=== PATIENT | female | born 1950 | race Caucasian/White ===

== ENCOUNTER 2020-12-19 18:17 | Emergency (ER) | payer OTHER, SELFPAY ==
[2020-12-19] VITALS (8 sets, daily range): BP systolic 169–204; BP diastolic 70–109; PULSE 76–103; RESP 8–23; TEMP 36.7; O2SAT 98–100; BMI 36.8
--- NOTE | 2020-12-19 18:30 | DI.RAD.S_ITS ---
PROCEDURE: XR CHEST 1V INDICATIONS: chest pain TECHNIQUE: One view of the chest was acquired. COMPARISON: None. FINDINGS: Surgical changes and devices: None. Lungs and pleura: Lungs are clear. No pleural effusions or pneumothorax. Mediastinum: Mediastinal contours appear normal. Heart size is normal. Bones and chest wall: No suspicious bony lesions. Overlying soft tissues appear unremarkable. IMPRESSION: No acute cardiopulmonary disease. Dictated by: Kavin Pérez M.D. on 12/19/2020 at 18:58 Approved by: Kavin Pérez M.D. on 12/19/2020 at 18:59
--- NOTE | 2020-12-19 19:02 | ED.CHESTPAIN ---
HPI - Chest Pain General Chief Complaint: Chest Pain Stated Complaint: chest pain Time Seen by Provider: 12/19/20 18:29 Source: patient Mode of arrival: Ambulatory Limitations: no limitations History of Present Illness HPI narrative: Patient is a 70-year-old female with history of hypertension presenting today with hypertension and burning in her chest. She says that last evening she woke from her sleep and felt burning in her chest radiating through to her back at her bra line. It has been constant all day without being relieved by antacids medication. She denies any shortness of breath palpitations is. She denies any nausea or diaphoresis. She really is complaining only of epigastric pain. She states she is followed by Leni weems for primary care she was previously on lisinopril however she took her 1st dose of what I am assuming his amlodipine 5 mg today. She was continuing to feel burning in her epigastric area took her blood pressure was 198/100 at which point she came to the emergency department for evaluation. MD complaint: chest pain Duration: constant Onset: during rest Pain location: epigastric Quality: other (Burning) Pain radiation: back Relieving factors: nothing Exacerbating factors: nothing Related Data Allergies Allergy/AdvReac Type Severity Reaction Status Date / Time acetaminophen [From Percocet] Allergy Severe Vomiting Verified 12/19/20 18:29 oxycodone [From Percocet] Allergy Severe Vomiting Verified 12/19/20 18:29 latex Allergy Verified 12/19/20 18:29 nini Allergy Verified 12/19/20 18:29 Review of Systems Review of Systems Narrative: GENERAL: Denies chills, fatigue, malaise, fever, sweats, travel HEENT: Denies sinus pain, ear pain, sore throat, difficulty swallowing, neck pain RESPIRATORY: Denies dyspnea, cough, wheezing, hemoptysis, sputum. CARDIOVASCULAR: See HPI GASTROINTESTINAL: Denies nausea, vomiting, abdominal pain, diarrhea, constipation, melena. : Denies dysuria, frequency, incontinence, hematuria, urinary retention, flank pain. MUSCULOSKELETAL: Denies weakness, joint pain, or bony pain SKIN: No rash, no erythema, no pruritus NEUROLOGIC: Denies weakness, dizziness, headache, numbness, change in speech, confusion PSYCHIATRIC: No concerning psychosocial issues. 12 point review of systems is negative except for those stated above and HPI Patient History Medical History Hypertension Social History Smoking Status: Never smoker Smoking Status: Never smoker Substance Use Type: does not use Exam Initial Vital Signs Initial Vital Signs: Vital Signs Temperature 98.0 F 12/19/20 18:25 Pulse Rate 103 H 12/19/20 18:25 Respiratory Rate 18 12/19/20 18:25 Blood Pressure 202/92 H 12/19/20 18:25 Pulse Oximetry 99 12/19/20 18:25 GENERAL: 70-year-old overweight female and in no acute distress. HEENT: Head atraumatic,EOMI, pupils reactive, face symmetric, moist mucous membranes CARDIOVASCULAR: Regular rate and rhythm without murmurs, rubs or gallops. RESPIRATORY: Breath sounds equal bilaterally, no wheezes rales or rhonchi. ABDOMEN: Soft, if he gastric pain with mild right upper quadrant pain negative Paulino sign EXTREMITIES: Normal range of motion, no clubbing or edema. Neurovascularly intact NEUROLOGICAL: Alert and oriented x4.Normal gait and speech. SKIN: Warm, dry, no laceration, no petechiae, no rashes or lesions. Scores HEART Score Heart Score history: Slightly Suspicious Heart Score EKG: Normal Heart Score Age: > or = 65 years old Heart Score risk factors: 1-2 risk factors Heart Score troponin: < or = to normal limit Heart Score Total: 3 Course Orders Ordered: ED Orders 12/19/20 18:29 EKG-12 Lead Stat 12/19/20 18:30 XR chest 1V Stat 12/19/20 18:50 Complete Blood Count AUTO DIFF Stat Comprehensive Metabolic Panel Stat Lipase Stat Partial Thromboplastin Time Stat Prothrombin Time INR Stat Troponin & CK Cardiac Panel Stat 12/19/20 19:08 CT chest abd pel wwo con Stat US abdomen limited Stat Discontinued Medications Aspirin (Aspirin 81 Mg Chew Tab) 324 mg PO NOW ONE Stop: 12/19/20 18:31 Last Admin: 12/19/20 19:45 Dose: 324 mg Documented by: RALPH Pantoprazole Sodium (Pantoprazole 40 Mg Vial) 40 mg IV NOW ONE Stop: 12/19/20 19:31 Last Admin: 12/19/20 19:45 Dose: 40 mg Documented by: RALPH Vital Signs Vital signs: Vital Signs - 8 hr 12/19/20 19:14 12/19/20 19:45 12/19/20 19:46 Pulse Rate 79 101 H 101 H Respiratory Rate 8 L 18 Blood Pressure 204/95 H Pulse Oximetry 100 98 12/19/20 20:00 12/19/20 20:30 12/19/20 20:31 Pulse Rate 99 H 79 76 Respiratory Rate 23 10 L 10 L Blood Pressure 192/92 H 175/109 H Pulse Oximetry 99 99 98 12/19/20 21:00 Pulse Rate 77 Respiratory Rate 9 L Blood Pressure 169/70 H Pulse Oximetry 99 MDM - Chest Pain Lab Data Attestation: I reviewed the patient's lab results. Result diagrams: 12/19/20 18:50 12/19/20 18:50 Labs: Lab Results 12/19/20 12/19/20 12/19/20 Range/Units 18:50 18:50 18:50 WBC 10.9 (4.5-11.0) X10^3/uL RBC 4.37 (4.0-5.2) X10^6/uL Hgb 11.4 L (12.0-16.0) g/dL Hct 35.6 L (36-46) % MCV 81.4 (80-100) fL MCH 26.1 (26-34) PG MCHC 32.0 (30-36) % RDW 15.0 H (11.6-14.8) % Plt Count 233 (150-400) X10^3/uL Neut % (Auto) 78.8 H (50-75) % Lymph % (Auto) 11.9 L (25-40) % Cobb % (Auto) 6.9 (3-14) % Eos % (Auto) 1.1 L (2-4) % Baso % (Auto) 1.3 (0-2) % Neut # (Auto) 8600 H (9596-1752) /uL Lymph # (Auto) 1300 (1701-0310) /uL Cobb # (Auto) 700 (0-900) /uL Eos # (Auto) 100 (0-450) /uL Baso # (Auto) 100 (0-100) /uL PT 12.2 (10.1-12.7) SECONDS INR 1.1 (0.9-1.3) APTT 37 H (26.4-36.2) SECONDS Sodium 135 L (137-145) mmol/L Potassium 3.8 (3.4-5.1) mmol/L Chloride 102 (98-107) mmol/L Carbon Dioxide 27 (22-32) mmol/L BUN 14 (7-17) mg/dL Creatinine 0.57 (0.52-1.04) mg/dL Estimated GFR > 60.0 (>60) mL/min BUN/Creatinine Ratio 24.6 H (6-22) Glucose 195 H (80-110) mg/dL Calcium 10.0 (8.4-10.2) mg/dL Total Bilirubin 0.2 (0.2-1.3) mg/dL AST 19 (14-36) IU/L ALT 12 (<35) IU/L Alkaline Phosphatase 91 (38-126) U/L Total Creatine Kinase 32 (30-135) U/L CK-MB (CK-2) TNP CK-MB (CK-2) Rel Index TNP Troponin I < 0.012 (0.01-0.034) ng/mL Total Protein 7.3 (6.3-8.2) g/dL Albumin 4.1 (3.5-5.0) g/dL Globulin 3.2 (1.7-4.1) g/dL Albumin/Globulin Ratio 1.3 (1.0-2.8) Lipase 403 H (23-300) U/L Urine Dip Bedside Urine Glucose Negative Bedside Urine Bilirubin - Negative Bedside Urine Ketone - Negative Urine Specific Pool 1.010 Bedside Urine Occult Blood - Negative Bedside Urine pH 6.0 Bedside Urine Protein - Negative Bedside Urine Urobilinogen - Negative Bedside Urine Nitrite - Negative Bedside Urine Leukocytes - Negative Esterase Imaging Data Chest x-ray: Radiologist's Impression: PROCEDURE: XR CHEST 1V INDICATIONS: chest pain TECHNIQUE: One view of the chest was acquired. COMPARISON: None. FINDINGS: Surgical changes and devices: None. Lungs and pleura: Lungs are clear. No pleural effusions or pneumothorax. Mediastinum: Mediastinal contours appear normal. Heart size is normal. Bones and chest wall: No suspicious bony lesions. Overlying soft tissues appear unremarkable. IMPRESSION: No acute cardiopulmonary disease. Dictated by: Kavin Pérez M.D. on 12/19/2020 at 18:58 US - abdomen: Radiologist's Impression: PROCEDURE: US ABDOMEN LIMITED INDICATIONS: RIGHT UPPER QUADRANT PAIN TECHNIQUE: Real-time focused scanning was performed of the abdomen, with image documentation. COMPARISON: None. FINDINGS: Liver is enlarged and demonstrates increased echotexture. Normal appearance of gallbladder. No gallstones. No gallbladder wall thickening, pericholecystic fluid or sonographic Paulino's sign. Extrahepatic biliary duct measures 3.7 mm. Pancreas is obscured by overlying bowel gas. IMPRESSION: 1. Diffusely increased hepatic echotexture. This finding is most likely secondary to hepatic fatty infiltration although other hepatocellular disease may have a similar appearance. Recommend clinical correlation. 2. Normal gallbladder. No gallstones or sonographic findings to suggest acute cholecystitis. 3. Normal caliber of extrahepatic biliary duct. 4. Pancreas obscured by overlying bowel gas. Dictated by: Kavin Pérez M.D. on 12/19/2020 at 20:24 CT scan - abdomen/pelvis: Radiologist's Impression: PROCEDURE: CT ANGIO CHEST ABDOMEN PELVIS INDICATIONS: htn bad chest pain TECHNIQUE: Precontrast 5 mm thick sections acquired from the lung apices to the iliac crests. After the administration of intravenous contrast, 2.5 mm thick sections again acquired from the lung apices to the iliac crests. Maximum intensity projection (MIP) oblique sagittal and coronal reformats were then acquired. For radiation dose reduction, the following was used: automated exposure control. COMPARISON: [facility], CR, XR CHEST 1V, 12/19/2020, 18:41. FINDINGS: Image quality: Excellent. AORTA: Aorta is normal in caliber. No aortic dissection. No significant aortic calcification. CHEST: Lungs and pleura: No acute airspace opacities. Left basilar atelectasis. No pleural effusions or pneumothorax. Central and peripheral airways are patent and normal in caliber. Small lung nodules are noted. Nodule 1: 2 mm; left lower lobe; image 6/158. Nodule 2: 2 mm; left lower lobe; image 6/182. Mediastinum: Heart size is normal. No pericardial effusion. Mild coronary artery atherosclerosis. No mediastinal or hilar adenopathy by size criteria. Central pulmonary arteries are normal in size. Esophagus is normal in caliber. Small hiatal hernias. Bones and chest wall: No axillary adenopathy by size criteria. Thyroid gland is normal . No suspicious bony lesions. No vertebral body compression fractures. ABDOMEN: Vasculature: Celiac trunk and mesenteric arteries are patent. Renal arteries are also patent. Solid organs: Liver is normal in size and enhancement. Gallbladder is normal. Biliary system is non dilated. Mild stranding in the area of pancreatic head. Spleen is normal in size and enhancement. No adrenal nodules. Both kidneys are normal in size and enhancement, without hydronephrosis. Peritoneum and bowel: No free fluid or air. Bowel loops are normal in caliber and wall thickness. Nodes and vessels: No retroperitoneal or mesenteric adenopathy by size criteria. Inferior vena cava is normal in morphology. Miscellaneous: There are 2 fat containing ventral hernias, one above the umbilicus and one below umbilicus. PELVIS: Genitourinary: Uterus is absent. No adnexal mass. Bladder wall thickness is normal. Miscellaneous: No inguinal hernias or adenopathy. No ventral hernias. Bones: No suspicious bony lesions. No vertebral body compression fractures. There is moderate degenerative disc disease in lumbar spine. IMPRESSION: 1. Normal thoracic and abdominal aorta. No aortic aneurysm or dissection. 2. Mild coronary artery atherosclerosis. 3. Mild stranding in the pancreatic head. Please correlate with pancreatic enzymes for mild pancreatitis. 4. Fat containing ventral hernias. 5. Small lung nodules. Please see enclosed follow-up recommendation. Fleischner Society criteria for SOLID lung nodule followup. Nodule size (mm)Low-risk patientHigh-risk patient?4No follow-up neededFollow-up at 12 mo; if no change, no further follow-up>1-2Xtewkf-al CT at 12 mo; if no change, no further follow-up needed.Initial follow-up CT at 6-12 mo, then 18-24 mo if no change. >6-8Initial follow-up CT at 6-12 mo, then 18-24 mo if no change. Initial follow-up CT at 3-6 mo, then 9-12 mo and 24 mo if no change. >8Follow-up CT at 3, 9, 24 mo. Or PET and/or biopsy.Same as for low-risk pts. Dictated by: Kavin Pérez M.D. on 12/19/2020 at 20:31 ECG Data Attestation: I personally reviewed and interpreted this ECG as follows: Prior ECG tracings: not available for review Interpretation: Normal sinus rhythm rate 104 the RI interval 166 your S [address] elevation depression T-wave inversion no Q-waves noted MDM Narrative Medical decision making narrative: Patient is complaining of burning sensation is radiating through to her back with significant hypertension. Concern for possible dissection. His CT angio is negative for dissection. She does also have some mild right upper quadrant pain no liver enzymes or bilirubin elevation slight elevation in lipase but not diagnostic. Ultrasound is negative. Chest burning sensation improves Discharge Plan Departure Patient Disposition: Home Clinical Impression: Atypical chest pain Instructions: DI for Atypical Chest Pain Activity Restrictions/Additional Instructions: *You have been diagnosed with atypical chest pain *What to do: At this time blood work and CT scan are overall reassuring. However if your continuing to have symptoms it is recommended that you have a stress test which can be arranged by her primary care for provider. Please also follow-up with her primary care provider in regards to her blood pressure. You may need further blood pressure medication or medication adjustment *Continue to take medications as directed *Follow up with your primary care provider in 2-3 days *Return to ER if you should have increasing chest pain, shortness of breath or any new, worsening or concerning symptoms
--- NOTE | 2020-12-19 19:04 | PC.NURSE ---
Recent medication change for hypertension. Stopped lisinopril and started calcium channel alyse. First dose last night. Patient had second COVID vaccine on and hasn't felt recovered since. Patient took BP tonight because she wasn't feeling well, high readings alarmed patient. Patient noticed heartburn last night some relief with belching but different than normal indigestion
[2020-12-19 19:06] LABS: Add Manual Diff / Slide Review NO; Basophils Absolute Auto 100 /uL (0-100); Basophils Percent Auto 1.3 % (0-2); Eosinophils Absolute Auto 100 /uL (0-450); Eosinophils Percent Auto 1.1 % (2-4); Hematocrit 35.6 % (36-46); Hemoglobin 11.4 g/dL (12.0-16.0); Lymphocytes Absolute Auto 1300 /uL (1100-4500); Lymphocytes Percent Auto 11.9 % (25-40); Mean Corpuscular Hemoglobin 26.1 PG (26-34); Mean Corpuscular Volume 81.4 fL (80-100); Monocytes Absolute Auto 700 /uL (0-900); Monocytes Percent Auto 6.9 % (3-14); Neutrophils Absolute Auto 8600 /uL (1500-7000); Neutrophils Percent Auto 78.8 % (50-75); Platelet Count 233 X10^3/uL (150-400); Red Blood Cell Count 4.37 X10^6/uL (4.0-5.2); White Blood Cell Count 10.9 X10^3/uL (4.5-11.0)
[2020-12-19 19:07] LABS: INR 1.1 (0.9-1.3); Prothrombin Time 12.2 SECONDS (10.1-12.7)
--- NOTE | 2020-12-19 19:08 | DI.US.S_ITS ---
PROCEDURE: US ABDOMEN LIMITED INDICATIONS: RIGHT UPPER QUADRANT PAIN TECHNIQUE: Real-time focused scanning was performed of the abdomen, with image documentation. COMPARISON: None. FINDINGS: Liver is enlarged and demonstrates increased echotexture. Normal appearance of gallbladder. No gallstones. No gallbladder wall thickening, pericholecystic fluid or sonographic Paulino's sign. Extrahepatic biliary duct measures 3.7 mm. Pancreas is obscured by overlying bowel gas. IMPRESSION: 1. Diffusely increased hepatic echotexture. This finding is most likely secondary to hepatic fatty infiltration although other hepatocellular disease may have a similar appearance. Recommend clinical correlation. 2. Normal gallbladder. No gallstones or sonographic findings to suggest acute cholecystitis. 3. Normal caliber of extrahepatic biliary duct. 4. Pancreas obscured by overlying bowel gas. Dictated by: Kavin Pérez M.D. on 12/19/2020 at 20:24 Approved by: Kavin Pérez M.D. on 12/19/2020 at 20:26
--- NOTE | 2020-12-19 19:08 | DI.CT.S_ITS ---
PROCEDURE: CT ANGIO CHEST ABDOMEN PELVIS INDICATIONS: htn bad chest pain TECHNIQUE: Precontrast 5 mm thick sections acquired from the lung apices to the iliac crests. After the administration of intravenous contrast, 2.5 mm thick sections again acquired from the lung apices to the iliac crests. Maximum intensity projection (MIP) oblique sagittal and coronal reformats were then acquired. For radiation dose reduction, the following was used: automated exposure control. COMPARISON: [facility], CR, XR CHEST 1V, 12/19/2020, 18:41. FINDINGS: Image quality: Excellent. AORTA: Aorta is normal in caliber. No aortic dissection. No significant aortic calcification. CHEST: Lungs and pleura: No acute airspace opacities. Left basilar atelectasis. No pleural effusions or pneumothorax. Central and peripheral airways are patent and normal in caliber. Small lung nodules are noted. Nodule 1: 2 mm; left lower lobe; image 6/158. Nodule 2: 2 mm; left lower lobe; image 6/182. Mediastinum: Heart size is normal. No pericardial effusion. Mild coronary artery atherosclerosis. No mediastinal or hilar adenopathy by size criteria. Central pulmonary arteries are normal in size. Esophagus is normal in caliber. Small hiatal hernias. Bones and chest wall: No axillary adenopathy by size criteria. Thyroid gland is normal . No suspicious bony lesions. No vertebral body compression fractures. ABDOMEN: Vasculature: Celiac trunk and mesenteric arteries are patent. Renal arteries are also patent. Solid organs: Liver is normal in size and enhancement. Gallbladder is normal. Biliary system is non dilated. Mild stranding in the area of pancreatic head. Spleen is normal in size and enhancement. No adrenal nodules. Both kidneys are normal in size and enhancement, without hydronephrosis. Peritoneum and bowel: No free fluid or air. Bowel loops are normal in caliber and wall thickness. Nodes and vessels: No retroperitoneal or mesenteric adenopathy by size criteria. Inferior vena cava is normal in morphology. Miscellaneous: There are 2 fat containing ventral hernias, one above the umbilicus and one below umbilicus. PELVIS: Genitourinary: Uterus is absent. No adnexal mass. Bladder wall thickness is normal. Miscellaneous: No inguinal hernias or adenopathy. No ventral hernias. Bones: No suspicious bony lesions. No vertebral body compression fractures. There is moderate degenerative disc disease in lumbar spine. IMPRESSION: 1. Normal thoracic and abdominal aorta. No aortic aneurysm or dissection. 2. Mild coronary artery atherosclerosis. 3. Mild stranding in the pancreatic head. Please correlate with pancreatic enzymes for mild pancreatitis. 4. Fat containing ventral hernias. 5. Small lung nodules. Please see enclosed follow-up recommendation. Fleischner Society criteria for SOLID lung nodule followup. Nodule size (mm)Low-risk patientHigh-risk patient?4No follow-up neededFollow-up at 12 mo; if no change, no further follow-up>[id number] CT at 12 mo; if no change, no further follow-up needed.Initial follow-up CT at 6-12 mo, then 18-24 mo if no change. >6-8Initial follow-up CT at 6-12 mo, then 18-24 mo if no change. Initial follow-up CT at 3-6 mo, then 9-12 mo and 24 mo if no change. >8Follow-up CT at 3, 9, 24 mo. Or PET and/or biopsy.Same as for low-risk pts. Dictated by: Kavin Pérez M.D. on 12/19/2020 at 20:31 Approved by: Kavin Pérez M.D. on 12/19/2020 at 20:44
[2020-12-19 19:10] LABS: PTT Partial Thromboplastin Tim 37 SECONDS (26.4-36.2)
[2020-12-19 19:21] LABS: Alanine Aminotransferase 12 IU/L (<35); Albumin 4.1 g/dL (3.5-5.0); Albumin Globulin Ratio 1.3 (1.0-2.8); Alkaline Phosphatase 91 U/L (38-126); Aspartate Aminotransferase 19 IU/L (14-36); BUN Creatinine Ratio 24.6 (6-22); Bilirubin Total 0.2 mg/dL (0.2-1.3); Blood Urea Nitrogen 14 mg/dL (7-17); Carbon Dioxide 27 mmol/L (22-32); Chloride 102 mmol/L (98-107); Creatine Kinase 32 U/L (30-135); Estimated Glomerular Filt Rate > 60.0 mL/min (>60); Globulin 3.2 g/dL (1.7-4.1); Glucose 195 mg/dL (80-110); HEMOLYSIS < 15 (0-50); Lipase 403 U/L (23-300); Potassium 3.8 mmol/L (3.4-5.1); Sodium 135 mmol/L (137-145); Total Protein 7.3 g/dL (6.3-8.2)
[2020-12-19 19:32] LABS: Troponin I < 0.012 ng/mL (0.01-0.034)
[2020-12-19] MEDS: PANTOPRAZOLE 40 MG VIAL IV (19:45)
[2020-12-19] MEDS: ASPIRIN 81 MG CHEW TAB 324 MG PO (19:45)
== END 2020-12-19 21:33 | disposition home or self-care (01) ==
PROVIDERS: Emergency Provider Emergency Medicine
DX: R07.89 Other chest pain (principal); I10 Essential (primary) hypertension; R10.13 Epigastric pain
CPT/HCPCS: 36415; 71045; 71270; 74178; 76705; 80053; 81003; 82550; 83690; 84484; 85025; 85610; 85730; 93005; 96374; 99284; C9113; Q9967